=== PATIENT | female | born 1985 | race Asian ===

== ENCOUNTER → 2019-08-19 | Outpatient (REF) | payer SELFPAY | LOC: M WUC 11:27 | PROVIDERS: ATTEND Nurse Practitioner Family | DX: Z20.828 Contact with and (suspected) exposure to other viral communicable diseases (principal) ==

== ENCOUNTER → 2019-09-09 | Outpatient (REF) | payer SELFPAY | LOC: M LAB REF 10:00 | PROVIDERS: ATTEND Nurse Practitioner Family | DX: Z20.828 Contact with and (suspected) exposure to other viral communicable diseases (principal); Z11.59 Encounter for screening for other viral diseases ==